=== PATIENT | male | born 1990 | race Caucasian/White ===

== ENCOUNTER 2022-08-16 19:56 | Emergency (ER) | payer SELFPAY ==
[2022-08-16 19:59] VITALS: BP 117/82; PULSE 89; RESP 14; TEMP 37.5; O2SAT 97; BMI 29.6
--- NOTE | 2022-08-16 20:40 | EKG12_ITS ---
Test Reason : CP Blood Pressure : / mmHG Vent. Rate : 088 BPM Atrial Rate : 088 BPM P-R Int : 146 ms QRS Dur : 082 ms QT Int : 342 ms P-R-T Axes : 032 -08 017 degrees QTc Int : 413 ms Normal sinus rhythm Normal ECG Confirmed by MARTHA FERNANDEZ, LYNDA ([id number]), offline editor MOOKIE SANCHEZ ([id number]) on 08/17/2022 11:36:43 AM Referred By: RAMÓN Confirmed By:LYNDA THOMAS MD
--- NOTE | 2022-08-16 20:48 | EDS_ITS ---
HPI History of Present Illness Chief Complaint: Confusion Narrative Narrative: Patient presents with 3 days of decreased p.o. intake, fevers, anorexia, muscle aches, today he developed some right lower abdominal pain. He also has some flank pain, no dysuria or hematuria that he noticed. No testicular pain. He has a cough but it is rare. He has no shortness of breath. He has no upper respiratory congestion. No diarrhea. PFSH PFSH Allergy/AdvReac Type Severity Reaction Status Date / Time codeine AdvReac Nausea/Vom/ Verified 08/16/22 19:58 Diarrhea Opioids - Morphine Analogues AdvReac Other Verified 08/16/22 19:58 [narcotics] Social History Smoking Status: Never smoker ROS ROS ED ROS Narrative Past medical history: Reviewed, unremarkable Medications: None Social history: Noncontributory Review of systems: All systems negative except as indicated General: Intermittent fever Eyes: No visual changes ENT: No upper airway congestion, normal voice Neck: No neck pain Cardiovascular: No chest pain Respiratory: No shortness of breath. Gastrointestinal: Right-sided abdominal pain. Right-sided flank pain. Genitourinary: No dysuria. No hematuria Musculoskeletal: He does have generalized myalgias Skin: No rash Neurological: No focal weakness Psych: No recent behavioral changes Hematologic: No easy bleeding or easy bruising EXAM Physical Exam Const Vital Signs: 08/16/22 19:59 08/16/22 22:01 Temperature 99.5 F H Temperature Source Temporal Pulse Rate 89 74 Respiratory Rate 14 17 Blood Pressure 117/82 H Blood Pressure Mean 93 Pulse Ox 97 97 Oxygen Delivery Method Room Air Room Air MDM MDM MDM Narrative Medical decision making narrative: Patient's work-up is unremarkable. He does have a white count of 19,000 although I cannot find a source I will add blood cultures, he likely has a virus in etiology he has been relatively afebrile in the ED. He significantly improved with IV fluids. I do not see anything that treat with antibiotics. If anything worsens he is to return. Lab Data Labs: Laboratory Results - last 24 hr 08/16/22 08/16/22 08/16/22 20:45 20:45 21:30 WBC 19.2 H RBC 4.85 Hgb 14.3 Hct 43.0 MCV 88.7 MCH 29.5 MCHC 33.3 RDW Std Deviation 40.8 RDW Coeff of Massiel 12.6 Plt Count 228 MPV 11.3 Immature Gran % (Auto) 0.800 Neut % (Auto) 86.3 H Lymph % (Auto) 3.6 L [place] % (Auto) 8.9 Eos % (Auto) 0.1 Baso % (Auto) 0.3 Absolute Neuts (auto) 16.6 H Absolute Lymphs (auto) 0.70 L Nucleated RBC % 0 Differential Comment SCANNED Sodium 136 Potassium 4.7 Chloride 103 Carbon Dioxide 26.0 Anion Gap 7 BUN 10 Creatinine 0.99 Estim Creat Clear Calc 116.20 Est GFR (MDRD) Af Amer 114 Est GFR (MDRD) Non-Af 95 BUN/Creatinine Ratio 10.1 Glucose 103 Calcium 8.9 Total Bilirubin 1.40 H AST 47 H ALT 43 Alkaline Phosphatase 80 Total Protein 8.0 Albumin 3.8 Globulin 4.2 Albumin/Globulin Ratio 0.9 Urine Color Yellow Urine Clarity Clear Urine pH 6.0 Ur Specific [place] 1.015 Urine Protein 30 H Urine Glucose (UA) Normal Urine Ketones 50 H Urine Occult Blood Negative Urine Nitrite Negative Urine Bilirubin Negative Urine Urobilinogen 4 H Ur Leukocyte Esterase 25 H Urine RBC 0 SEEN Urine WBC 0 SEEN Ur Squamous Epith Cells 0 SEEN Urine Bacteria RARE Urine Mucus RARE Radiography Diagnostic Testing: Clinical Impression(s) from Imaging Studies Abdomen/Pelvis CT 08/16/22 21:31 IMPRESSION: No acute or inflammatory disease or bowel obstruction. Electronically Signed: Guanaco Tan MD at 22:35 EST , Chest X-Ray 08/16/22 21:45 IMPRESSION: No radiographic evidence of acute cardiopulmonary disease. Electronically Signed: Guanaco Tan MD at 22:22 EST , Discharge Plan Triage Chief Complaint: Confusion ED Provider: Mor Coates Dx/Rx/DC Orders Clinical Impression: Fever, Acute viral syndrome Instructions: ED Viral Syndrome (Adult) Primary Care Provider: Care Physician,No Primary Referrals: Care Physician,No Primary [Primary Care Provider] - 3-5 Days Disposition Disposition: Home, Self Care
[2022-08-16 21:08] LABS: Absolute Neutrophil Count 16.6 X10^3/uL (2.0-7.7); Basophil# 0.05 X10^3/uL; Basophil% 0.3 % (0-1); Eosinophil# 0.02 X10^3/uL; Eosinophils% 0.1 % (0-5); Hemoglobin 14.3 g/dL (13.0-16.5); Lymphocyte % 3.6 % (19-41); Mean Corp Hgb Conc 33.3 g/dL (32-36); Mean Corpuscular Hgb 29.5 pg (27.0-32.0); Mean Corpuscular Volume 88.7 fL (80-94); Mean Platelet Vol. 11.3 fl (6.2-12.0); Monocyte# 1.72 X10^3/uL; Monocyte% 8.9 % (0-10); NRBC Flagged by Analyzer 0 % (0-5); Neutrophil # 16.59 X10^3/uL (2.7-7.7); Neutrophil % 86.3 % (47-70); POSITIVE DIFFERENTIAL YES; Platelet Count 228 K/mm3 (150-450); RBC Distribution Width CV 12.6 % (11.6-14.6); RBC Distribution Width SD 40.8 fl (35.1-43.9); Red Blood Count 4.85 M/mm3 (4.6-6.2); White Blood Count 19.2 K/mm3 (4.4-11.0)
[2022-08-16 21:10] LABS: Differential Indicated SCAN CRITERIA MET
[2022-08-16] MEDS: Ketorolac 15 MG/ML Vial IV (21:26)
[2022-08-16] MEDS: 0.9% Normal Saline 1,000 ML 1000 ML IV (21:26)
[2022-08-16 21:30] LABS: Differential Comment SCANNED
[2022-08-16 21:31] LABS: Color, Urine Yellow (Yellow); Glucose, Dipstick Normal (Normal); Ketone-Dipstick 50 mg/dl (Negative); Leukocyte Esterase-Dipstick 25 /ul (Negative); Nitrite-Dipstick Negative (Negative); Occult Blood-Urine Negative /ul (Negative); Protein-Dipstick 30 mg/dl (Negative); Red Blood Cells-Urine 0 SEEN /hpf (0-5); Specific Gravity, Urine 1.015 (1.002-1.030); Squamous Epithelial Cells - UA 0 SEEN /hpf (0-5); Urine Bilirubin Dipstick Negative (Negative); Urine Clarity Clear (Clear); Urine Urobilinogen 4 mg/dl (Normal); White Blood Cells 0 SEEN /hpf (0-5)
--- NOTE | 2022-08-16 21:31 | CT_ITS ---
EXAM: CT ABDOMEN AND PELVIS WITHOUT INTRAVENOUS CONTRAST CLINICAL INDICATION: flank pain TECHNIQUE: Helically acquired images were obtained of the abdomen and pelvis without intravenous contrast. CTDIvol = ( 10.06 ) mGy, DLP = ( 743.34 ) mGycm This CT exam was performed using one or more of the following dose reduction techniques: automated exposure control, adjustment of the mA and/or kV according to patient size, and/or use of iterative reconstruction technique. This report was created using [employer] report generation technology. COMPARISON: None. FINDINGS: LOWER THORAX: Right middle lobe scarring. Lung bases are clear. No cardiomegaly. No significant pericardial effusion. ABDOMEN: LIVER: Unremarkable. Homogeneous. GALLBLADDER AND BILE DUCTS: Unremarkable. No calcified gallstones. No gallbladder distention or wall edema. No intra- or extrahepatic biliary ductal dilation. PANCREAS: Unremarkable. No focal cystic mass. SPLEEN: Unremarkable. Normal size without focal cystic or solid mass. ADRENALS: Unremarkable. No nodules. KIDNEYS AND URETERS: Unremarkable. Normal renal size and position. No hydronephrosis. STOMACH AND BOWEL: Unremarkable. No stomach or bowel distention. No focal inflammatory change. PELVIS: APPENDIX: No evidence of acute appendicitis. BLADDER: Unremarkable. REPRODUCTIVE: Unremarkable as visualized. No mass. ABDOMEN and PELVIS: INTRAPERITONEAL SPACE: Unremarkable. No ascites or other fluid collection. No free air. BONES/JOINTS: Unremarkable. No suspicious lytic or blastic abnormality. SOFT TISSUES: Unremarkable. No discrete abdominal or pelvic wall hernia. VASCULATURE: Unremarkable. Abdominal aorta is non-dilated. LYMPH NODES: Unremarkable. No enlarged lymph nodes. CT/Abdomen/Pelvis without Cont IMPRESSION: No acute or inflammatory disease or bowel obstruction. Electronically Signed: Guanaco Tan MD at 22:35 EST ,
[2022-08-16 21:32] LABS: ALB/GLOB Ratio 0.9 RATIO (0.9-2.4); AST(SGOT) 47 U/L (15-37); Alanine Aminotransfer ALT/SGPT 43 U/L (16-61); Albumin, Serum 3.8 g/dL (3.2-5.0); Alkaline Phosphatase 80 U/L (45-117); Anion Gap 7 (5-15); BUN 10 mg/dL (7-18); BUN/Creat Ratio 10.1 RATIO (10-20); Calcium,Total 8.9 mg/dL (8.5-10.1); Chloride 103 mmol/L (98-107); Creatinine, Serum 0.99 mg/dL (0.70-1.30); EST Glomerular Filtration Rate 95 mL/min (>60); Est Glom Filt Rate - Afr Amer 114 mL/min (>60); Globulin 4.2 g/dL (2.2-4.2); Glucose 103 mg/dL (74-106); Potassium 4.7 mmol/L (3.5-5.1); Sodium Level 136 mmol/L (136-145)
--- NOTE | 2022-08-16 21:45 | RAD_ITS ---
EXAM: XR CHEST, 1 VIEW CLINICAL INDICATION: fever TECHNIQUE: Frontal view of the chest. This report was created using [employer] report generation technology. COMPARISON: None. FINDINGS: LUNGS AND PLEURAL SPACES: Unremarkable. No consolidation or edema. No pneumothorax. No effusion. HEART: Unremarkable. Cardiac silhouette not enlarged. MEDIASTINUM: Central airways and mediastinal contour are unremarkable. BONES/JOINTS: Unremarkable. SOFT TISSUES: Unremarkable. RAD/Chest 1 View (Portable) IMPRESSION: No radiographic evidence of acute cardiopulmonary disease. Electronically Signed: Guanaco Tan MD at 22:22 [facility] ,
[2022-08-16 21:59] LABS: Bacteria RARE /hpf (None Seen); Mucous, Urine RARE /hpf (<or=2+)
[2022-08-16 22:01] VITALS: PULSE 74; RESP 17; O2SAT 97
[2022-08-16 22:58] VITALS: BP 117/68; PULSE 70; RESP 15; O2SAT 99
[2022-08-17 15:07] LABS: Pathologist Review Reviewed
== END 2022-08-16 23:11 | disposition home or self-care (01) ==
PROVIDERS: Emergency Provider Emergency Medicine; Visit Provider Emergency Medicine
DX: B34.9 Viral infection, unspecified (principal); R10.31 Right lower quadrant pain; R41.0 Disorientation, unspecified; R50.9 Fever, unspecified
CPT/HCPCS: 71045; 74176; 80053; 81001; 85025; 87040; 87428; 93005; 96361; 96374; 99283; J7030

== ENCOUNTER → 2023-05-18 | Outpatient (CLI) | payer MEDICAID, SELFPAY ==
--- NOTE | 2023-05-18 09:39 | NEURO ---
NCS and/or EMG Patient Report Ordering Doctor: [place] DATE OF SERVICE: 05/18/23 Guanaco complains of right arm pain with periodic numbness and tingling. Electrodiagnostic Findings: Right median motor nerve demonstrates normal distal latency, amplitude and conduction velocity. Normal right ulnar motor response, including conduction across the elbow. Normal right ulnar and median F-waves. Normal sensory responses are noted. Needle EMG testing was performed in the right upper limb. 1+ positive sharp waves were noted in the right deltoid and biceps. 1+ fibrillations noted in the right mid cervical paraspinals. Motor unit action potentials are of normal amplitude and duration. Electrodiagnostic impression: This is an abnormal study in the right upper limb 1. Electrodiagnostic findings are suggestive of an acute right C5 radiculopathy. Would consider clinical correlation with cervical spine imaging to evaluate for possible disc abnormalities. 2. There is no electrodiagnostic evidence for median neuropathy, including carpal tunnel syndrome. 3. There is no electrodiagnostic evidence for ulnar neuropathy, including cubital tunnel syndrome. 4. There is no electrodiagnostic evidence for brachial plexopathy. Multi Select Codes Neurology Neurology Interp Codes: 43683-02 Musc test done w/n test comp (interp) and 91880-97 Nrv cndj test 7-8 studies (interp)
== END | disposition home or self-care (01) ==
PROVIDERS: Referring Provider Orthopaedic Surgery Sports Medicine; Visit Provider Orthopaedic Surgery Sports Medicine
DX: G56.20 Lesion of ulnar nerve, unspecified upper limb (principal)
CPT/HCPCS: 95886; 95910

== ENCOUNTER → 2023-06-08 | Outpatient (CLI) | payer MEDICAID, SELFPAY ==
--- NOTE | 2023-06-08 07:15 | MRI_ITS ---
STUDY: MRI RIGHT SHOULDER REASON FOR EXAM: Male, 32 years old. Progressive pain with weakness and numbness for last year. Evaluate for rotator cuff tear. TECHNIQUE: Standardized fat and water weighted pulse sequences were obtained in all 3 orthogonal planes. COMPARISON: Right shoulder x-rays dated March 21, 2023. FINDINGS: Supraspinatus tendinosis with articular and bursal surface fraying resulting in thinning/attenuation. No partial-thickness or full-thickness tear (coronal series 6 images 7-11). Marked infraspinatus tendinosis with thickening and increased signal intensity with articular surface fraying. No partial-thickness or full-thickness tear (coronal series 6 images 11-15). Subscapularis tendinosis with thickening and increased signal intensity without a full-thickness tear (axial series 3 images 8-14). Normal teres minor tendon. Normal supraspinatus muscle. Normal infraspinatus muscle. Normal subscapularis muscle. Normal teres minor muscle. Moderate thinning of the articular cartilage of the glenohumeral joint with a small glenohumeral joint effusion (axial series 3 images 8-14). Cystic change in the humeral head (axial series 3 images 8-11). Normal biceps labral complex. Thinning/attenuation of the intracapsular portion of the long head of the biceps tendon (axial series 3 images 8-14). Normal labrum. Normal capsulo- ligamentous complex. Normal rotator interval. Os acromiale, a normal variant with minimal edema at the os acromiale and site. Bone marrow edema in the distal clavicle and adjacent acromion with AC joint hypertrophy resulting in narrowing of the subacromial space (coronal series 6 images 8-18). There is a Type II morphology (curved), with a neutral orientation. There is no subacromial-subdeltoid bursal fluid. Normal visualized coracohumeral and coracoacromial ligaments. Normal quadrilateral space. Normal axillary space. Normal deltoid muscle. Normal trapezius muscle. MRI/Upper Ext Joint Only(Routine) IMPRESSION: Supraspinatus, infraspinatus and subscapularis tendinosis as described. No full-thickness or partial-thickness tears. Moderate arthrosis of the glenohumeral joint. Cystic change in the humeral head. Thinning/attenuation of the long head of the biceps. Os acromiale, a normal variant. Bone marrow edema in the distal clavicle and adjacent acromion with AC joint hypertrophy resulting in narrowing of the subacromial space. Small glenohumeral joint effusion. Electronically Signed: Babar Richards MD at 15:58 EDT ,
== END | disposition home or self-care (01) ==
LOC: MRI 07:25
PROVIDERS: Referring Provider Orthopaedic Surgery Sports Medicine; Visit Provider Orthopaedic Surgery Sports Medicine
DX: M25.511 Pain in right shoulder (principal)
CPT/HCPCS: 73221